=== PATIENT | female | born 1975 | race Caucasian/White ===

== ENCOUNTER 2018-06-12 14:02 | Emergency (ER) | payer OTHER ==
[~2018-06-12] VITALS: Ht 152.4 cm; Wt 43.5 kg
[2018-06-12 14:14] VITALS: BP 116/72
[2018-06-12] MEDS ORDERED: MOBIC7.5 MG PO (14:56)
== END 2018-06-12 15:00 | disposition home or self-care (01) ==
LOC: ER 14:02
DX: S90.31XA Contusion of right foot, initial encounter (principal); W22.8XXA Striking against or struck by other objects, initial encounter; Y93.89 Activity, other specified; Y92.89 Other specified places as the place of occurrence of the external cause; Y99.8 Other external cause status